=== PATIENT | male | born 1965 | race Two or more races ===

== ENCOUNTER 2017-01-09 04:41 | Emergency (ER) | payer MEDICAID ==
[~2017-01-09] VITALS: Ht 170.2 cm; Wt 82.0 kg
[2017-01-09] MEDS ORDERED: LORAZEPAM 2MG/ML CPJ IV ONE (05:45)
[2017-01-09 05:53] LABS: BASOPHILS % 1.2 % (0.0-2.0); EOSINOPHILS % 0.9 % (0.0-5.0); HEMATOCRIT. 35.7 % (42.0-52.0); HEMOGLOBIN. 12.1 g/dL (14.0-18.0); LYMPHOCYTES % 15.3 % (20.0-50.0); MEAN CORPUSCULAR HEMOGLOBIN 33.9 pg (28.0-32.0); MEAN CORPUSCULAR HGB CONC 33.9 g/dL (31.0-37.0); MEAN CORPUSCULAR VOLUME 99.9 fL (80.0-94.0); MEAN PLATELET VOLUME 8.9 fl (7.4-10.4); NEUTROPHILS % 70.6 % (40.0-76.0); PLATELET 55 x1000/uL (130-400); RED BLOOD CELL COUNT 3.57 mill/uL (4.7-6.1); RED CELL DISTRIBUTION WIDTH 14.2 % (11.6-14.6); WHITE BLOOD COUNT 4.4 x1000/uL (4.5-11.0)
[2017-01-09 05:57] LABS: CLARITY URINE CLEAR (CLEAR); COLOR URINE YELLOW (YELLOW); GLUCOSE URINE NEGATIVE (NEGATIVE); KETONES URINE NEGATIVE (NEGATIVE); LEUKOCYTE ESTERASE URINE 1+ (NEGATIVE); NITRITE URINE NEGATIVE (NEGATIVE); OCCULT BLOOD URINE TRACE (NEGATIVE); PH URINE 7.5 (4.5-8.0); PROTEIN URINE 1+ (NEGATIVE); SPECIFIC GRAVITY URINE 1.017 (1.005-1.030)
[2017-01-09] MEDS ORDERED: MVI, ADULT NO.1 10 ML, THIAMINE HCL 100 MG, FOLIC ACID 1 MG in SODIUM CHLORIDE 0.9% 1,0... IV ONE ×4 (06:00)
[2017-01-09 06:01] LABS: ALBUMIN 3.9 g/dL (3.4-5.0); ANION GAP 13; CARBON DIOXIDE 30 mEq/L (21-32); CHLORIDE 97 mEq/L (98-107); ETHANOL BLOOD < 10 mg/dL; INDEX HEMOLYSI 1 (1-3); INDEX ICTERIC 1 (1-4); INDEX LIPEMIC 1 (1-3); LIPASE 264 IU/L (73-393); UREA NITROGEN BLOOD 8 mg/dL (7-21); eGFR > 60 mL/min (>60)
[2017-01-09 06:08] LABS: ALANINE AMINOTRANSFERASE 43 IU/L (13-61)
[2017-01-09 06:10] LABS: *COCAINE SCREEN URINE NEGATIVE (NEGATIVE); ECSTASY MDMA SCREEN URINE NEGATIVE (NEGATIVE); OPIATES URINE SCREEN NEGATIVE (NEGATIVE)
[2017-01-09 06:11] LABS: *AMPHETAMINES SCREEN URINE NEGATIVE (NEGATIVE); *BARBITURATES SCREEN URINE NEGATIVE (NEGATIVE); *BENZODIAZEPINES SCREEN URINE PRESUMTIVE POSITIVE (NEGATIVE); CANNABINOID URINE SCREEN NEGATIVE (NEGATIVE); METHADONE URINE SCREEN NEGATIVE (NEGATIVE); PHENCYCLIDINE URINE SCREEN NEGATIVE (NEGATIVE)
[2017-01-09 06:12] LABS: MUCUS URINE TRACE /lpf (NONE/TRACE); SQUAMOUS EPITHELIAL CELL URINE FEW /lpf (RARE/1+)
[2017-01-09 06:14] LABS: BACTERIA URINE TRACE
[2017-01-09 09:53] VITALS: BP 129/68
== END 2017-01-09 10:58 | disposition home or self-care (01) ==
LOC: ER 04:51
DX: F10.239 Alcohol dependence with withdrawal, unspecified (principal); F17.200 Nicotine dependence, unspecified, uncomplicated; Z98.890 Other specified postprocedural states; Y90.0 Blood alcohol level of less than 20 mg/100 ml
CPT/HCPCS: 36415; 80053; 80305; 81001; 83690; 85025; 96374; 99284; G0482; J2060; J3411; J3490; Z7610; J7030

== ENCOUNTER 2019-05-07 16:18 | Inpatient (IN) | payer MEDICAID ==
[~2019-05-07] VITALS: Ht 170.2 cm; Wt 72.6 kg
[2019-05-07] MEDS ORDERED: ONDANSETRON HCL 4MG/2ML INJ IV STA (21:01)
[2019-05-07] MEDS ORDERED: SODIUM CHLORIDE 0.9% 1,000 ML IV ONE ×2 (21:01→21:25)
[2019-05-07] MEDS ORDERED: LORAZEPAM 2MG/ML CPJ IV ONE (21:30)
[2019-05-07] MEDS ORDERED: FOLIC ACID 1 MG, THIAMINE HCL 100 MG, MVI, ADULT NO.1 10 ML in DEXTROSE 5% WATER 1,000 ML IV ONE ×4 (21:30)
[2019-05-07] MEDS ORDERED: LEVETIRACETAM 500MG PREMIX 100 ML IV ONE (21:30)
[2019-05-07 21:44] LABS: BASOPHILS % 2.6 % (0.0-2.0); HEMATOCRIT. 37.5 % (42.0-52.0); HEMOGLOBIN. 12.7 g/dL (14.0-18.0); LYMPHOCYTES % 7.8 % (20.0-50.0); MEAN CORPUSCULAR HEMOGLOBIN 35.9 pg (28.0-32.0); MEAN CORPUSCULAR VOLUME 106.1 fL (80.0-94.0); MONOCYTES % 9.1 % (2.0-8.0); NEUTROPHILS % 80.5 % (40.0-76.0); PLATELET 84 x1000/uL (130-400); RED BLOOD CELL COUNT 3.54 mill/uL (4.7-6.1); RED CELL DISTRIBUTION WIDTH 14.2 % (11.6-14.6)
[2019-05-07 21:51] LABS: CHLORIDE 101 mEq/L (98-107)
[2019-05-07 21:55] LABS: ETHANOL BLOOD < 10 mg/dL
[2019-05-07] MEDS ORDERED: KETOROLAC 15MG/ML VIAL IV ONE (22:00)
[2019-05-07 22:06] LABS: PARTIAL THROMBOPLASTIN TIME 25.4 sec (23.4-31.0); PROTHROMBIN TIME 10.4 sec (9.6-11.0)
[2019-05-07] MEDS ORDERED: MAGNESIUM OXIDE 400MG TABLET PO SCH (23:45)
[2019-05-08 02:14] LABS: *AMPHETAMINES SCREEN URINE NEGATIVE (NEGATIVE); *BARBITURATES SCREEN URINE NEGATIVE (NEGATIVE); *BENZODIAZEPINES SCREEN URINE NEGATIVE (NEGATIVE); *COCAINE SCREEN URINE NEGATIVE (NEGATIVE)
[2019-05-08 02:15] LABS: CANNABINOID URINE SCREEN NEGATIVE (NEGATIVE); METHADONE URINE SCREEN NEGATIVE (NEGATIVE); OPIATES URINE SCREEN NEGATIVE (NEGATIVE); PHENCYCLIDINE URINE SCREEN NEGATIVE (NEGATIVE)
[2019-05-08 03:53] VITALS: BP 117/72
[2019-05-08 04:21] VITALS: BP 125/78
[2019-05-08 08:44] VITALS: BP 105/64
[2019-05-08] MEDS: CHLORDIAZEPOXIDE 25MG CAPSULE PO SCH ×2 (15:29→22:17)
[2019-05-08 16:28] VITALS: BP 103/60
[2019-05-08 20:00] VITALS: BP 94/57
[2019-05-08 20:43] LABS: CHLORIDE 100 mEq/L (98-107)
[2019-05-08 20:50] LABS: BASOPHILS % 1.3 % (0.0-2.0); EOSINOPHILS % 0.6 % (0.0-5.0); HEMATOCRIT. 33.6 % (42.0-52.0); HEMOGLOBIN. 11.5 g/dL (14.0-18.0); LYMPHOCYTES % 11.1 % (20.0-50.0); MEAN CORPUSCULAR HEMOGLOBIN 35.9 pg (28.0-32.0); MEAN CORPUSCULAR VOLUME 104.6 fL (80.0-94.0); MEAN PLATELET VOLUME 9.4 fl (7.4-10.4); MONOCYTES % 9.3 % (2.0-8.0); NEUTROPHILS % 77.7 % (40.0-76.0); PLATELET 88 x1000/uL (130-400); RED BLOOD CELL COUNT 3.21 mill/uL (4.7-6.1); RED CELL DISTRIBUTION WIDTH 13.8 % (11.6-14.6)
[2019-05-09] VITALS: BP 116/66
[2019-05-09 04:00] VITALS: BP 105/55
[2019-05-09] MEDS: CHLORDIAZEPOXIDE 25MG CAPSULE PO SCH ×3 (06:32→21:20)
[2019-05-09 07:52] VITALS: BP 109/63
[2019-05-09] MEDS ORDERED: ACETAMINOPHEN 325MG TABLET PO PRN (09:45)
[2019-05-09] MEDS ORDERED: MAGNESIUM 2 G PREMIX 50 ML IV SCH (11:00)
[2019-05-09 12:00] VITALS: BP 112/66
[2019-05-09 16:00] VITALS: BP 102/65
[2019-05-09 16:43] LABS: BASOPHILS % 1.8 % (0.0-2.0); EOSINOPHILS % 1.1 % (0.0-5.0); HEMOGLOBIN. 11.7 g/dL (14.0-18.0); LYMPHOCYTES % 9.7 % (20.0-50.0); MEAN CORPUSCULAR VOLUME 104.5 fL (80.0-94.0); MEAN PLATELET VOLUME 9.3 fl (7.4-10.4); MONOCYTES % 10.7 % (2.0-8.0); NEUTROPHILS % 76.7 % (40.0-76.0); PLATELET 93 x1000/uL (130-400); RED BLOOD CELL COUNT 3.25 mill/uL (4.7-6.1); RED CELL DISTRIBUTION WIDTH 13.8 % (11.6-14.6)
[2019-05-09 16:49] LABS: CHLORIDE 101 mEq/L (98-107)
[2019-05-09 20:00] VITALS: BP 107/64
[2019-05-10] VITALS: BP 117/59
[2019-05-10 04:00] VITALS: BP 125/80
[2019-05-10] MEDS: CHLORDIAZEPOXIDE 25MG CAPSULE PO SCH ×2 (05:24→13:10)
[2019-05-10 08:00] VITALS: BP 121/79
[2019-05-10 11:15] LABS: CHLORIDE 103 mEq/L (98-107)
[2019-05-10 11:17] LABS: BASOPHILS % 1.3 % (0.0-2.0); EOSINOPHILS % 2.8 % (0.0-5.0); HEMATOCRIT. 35.4 % (42.0-52.0); HEMOGLOBIN. 12.1 g/dL (14.0-18.0); LYMPHOCYTES % 11.3 % (20.0-50.0); MEAN CORPUSCULAR HEMOGLOBIN 35.9 pg (28.0-32.0); MEAN CORPUSCULAR VOLUME 105.3 fL (80.0-94.0); MEAN PLATELET VOLUME 9.3 fl (7.4-10.4); MONOCYTES % 10.9 % (2.0-8.0); NEUTROPHILS % 73.7 % (40.0-76.0); PLATELET 103 x1000/uL (130-400); RED BLOOD CELL COUNT 3.36 mill/uL (4.7-6.1); RED CELL DISTRIBUTION WIDTH 13.6 % (11.6-14.6)
[2019-05-10 12:00] VITALS: BP 104/68
[2019-05-10] MEDS ORDERED: L25 MT (12:15)
[2019-05-10 13:42] VITALS: BP 104/68
== END 2019-05-10 17:40 | disposition home or self-care (01) | DRG 775 ==
LOC: ER 16:18 → EDBEDREQTM 22:02 → EDBEDREQSVC 22:02 → EDBEDREQ 22:02 → EDBEDREQTM 23:38 → EDBEDREQ 23:38 → EDBEDREQDT 05-08 00:50 → EDBEDREQTM 05-08 00:50 → ENRESERV 05-08 03:12 → 8WST 05-08 03:55
PROVIDERS: ADMIT Family Medicine; ATTEND Family Medicine
DX: F10.239 Alcohol dependence with withdrawal, unspecified (principal); M79.601 Pain in right arm; Z91.81 History of falling; Z79.899 Other long term (current) drug therapy
CPT/HCPCS: 36415; 71045; 73030; 73060; 80305; 80320; 82140; 82962; 83735; 84484; 93005; 96374; 96375; 99285; J1885; J1953; J2060; J2405; J3411; J3475; J3490; J7030; J7040; J7070; G0480